=== PATIENT | male | born 1935 | race Caucasian/White ===

== ENCOUNTER → 2017-12-14 09:32 | Outpatient (CLI) | payer MEDICARE, OTHER, SELFPAY ==
--- NOTE | 2017-12-14 09:35 | CDU_ITS ---
Reason For Study: Carotid stenosis Rt. Velocities/BP Lt. Velocities/BP Prox CCA 106.0/11.1 cm/sec. Prox CCA 74.5/15.8 cm/sec. Mid CCA 69.2/11.7 cm/sec. Mid CCA 61.0/11.7 cm/sec. Dist CCA 74.5/11.7 cm/sec. Dist CCA 56.3/13.5 cm/sec. Prox ICA 48.3/12.2 cm/sec. Prox ICA 152.0/39.3 cm/sec. Mid ICA 76.2/20.8 cm/sec. Mid ICA 101.0/23.6 cm/sec. Dist ICA 109.0/29.3 cm/sec. Dist ICA 89.9/25.3 cm/sec. Rt. ICA/CCA = 1.6. Lt. ICA/CCA = 2.5. Prox ECA 122.0/7.9 cm/sec. Prox ECA 157.0/0.0 cm/sec. Rt. Vert. 70.9/11.7 cm/sec. Lt. Vert. 46.1/9.4 cm/sec. Right Extracranial There is heterogeneous, irregular atherosclerotic plaque noted in the right common carotid artery. There is homogeneous, smooth atherosclerotic plaque noted in the right internal carotid artery. There is intimal thickening but no significant atherosclerotic plaque noted in the right external carotid artery. Antegrade flow is noted in the right vertebral artery. Left Extracranial There is heterogeneous, irregular atherosclerotic plaque noted in the left common carotid artery. There is heterogeneous, irregular atherosclerotic plaque noted in the left internal carotid artery. The atherosclerotic plaque causes acoustic shadowing. There is intimal thickening but no significant atherosclerotic plaque noted in the left external carotid artery. Antegrade flow is noted in the left vertebral artery. Procedure Carotid Duplex 55190. Exam performed in department. Interpretation Summary Widely patent post operative changes of the right carotid bulb and proximal internal carotid with <50% stenosis Mild disease right external carotid Calcific irregular plague at the proximal left internal and external carotids. 50-69% stenosis left internal carotid Mild disease left external carotid Patent and antegrade vertebrals bilaterally Ordering Physician: Timmy Fatima Referring Physician: Timmy Fatima Performed By: Yenny Leblanc RVT
== END ==
PROVIDERS: Family Provider Internal Medicine; PCP Internal Medicine; Referring Provider Surgery; Visit Provider Surgery
DX: I65.23 Occlusion and stenosis of bilateral carotid arteries (principal)
CPT/HCPCS: 93880

== ENCOUNTER → 2018-02-20 11:00 | Outpatient (CLI) | payer MEDICARE, OTHER, SELFPAY | PROVIDERS: Family Provider Internal Medicine; PCP Internal Medicine; Referring Provider Nurse Practitioner Adult Health; Visit Provider Nurse Practitioner Adult Health | DX: R82.998 Other abnormal findings in urine (principal) | CPT/HCPCS: 87077; 87086; 87088; 87186 ==

== ENCOUNTER → 2018-05-08 10:12 | Outpatient (CLI) | payer MEDICARE, OTHER, SELFPAY ==
[2018-04-21 08:33] VITALS: BMI 28.7
[2018-05-08 10:51] LABS: Hematocrit 39.7 % (40-54); Mean Corp Hgb Conc 32.7 g/gl (32-36); Mean Corpuscular Hgb 30.9 pg (27.0-32.0); Mean Corpuscular Volume 94.3 fL (80-94); Mean Platelet Vol. 9.2 fl (6.2-12.0); Platelet Count 230 K/mm3 (150-450); RBC Distribution Width CV 11.6 % (11.6-14.6); RBC Distribution Width SD 39.2 fl (35.1-43.9); Red Blood Count 4.21 M/mm3 (4.6-6.2); White Blood Count 7.4 K/mm3 (4.4-11.0)
[2018-05-08 10:52] LABS: Scan Indicated on CBC? Y/N NO
[2018-05-08 11:07] LABS: Anion Gap 9 (5-15); BUN 24 mg/dL (7-18); Calcium,Total 8.7 mg/dL (8.5-10.1); Chloride 102 mmol/L (98-107); Creatinine, Serum 1.41 mg/dL (0.70-1.30); EST Glomerular Filtration Rate 51 mL/min (>60); Est Glom Filt Rate - Afr Amer 62 mL/min (>60); Glucose 208 mg/dL (74-106); Potassium 4.5 mmol/L (3.5-5.1); Sodium Level 140 mmol/L (136-145)
== END ==
PROVIDERS: Family Provider Internal Medicine; PCP Internal Medicine; Visit Provider Surgery
DX: I77.9 Disorder of arteries and arterioles, unspecified (principal)
CPT/HCPCS: 36415; 80048; 85027

== ENCOUNTER 2018-05-16 06:25 | Day surgery (SDC) | payer MEDICARE, OTHER, SELFPAY ==
[2018-04-21 08:33] VITALS: BMI 28.7
[2018-05-15 08:46] VITALS: BMI 28.5
--- NOTE | 2018-05-16 10:50 | PCM.OPRPT ---
Problem List (1) Peripheral arterial occlusive disease Status: Acute Report of Operation Date of Procedure: 05/16/18 Pre-Operative Diagnosis: Critical ischemia right foot Post-Operative Diagnosis: Multi segmental peripheral vascular occlusive disease with occlusion of the right anterior tibial and peroneal and posterior tibial Surgery/Procedure Performed:: Abdominal pelvic right lower extremity arteriogram with right anterior tibial 2 x 80 mm angioplasty Description of Surgical Findings:: Timeout and informed consent was obtained. 83-year-old gentleman was taken to special procedures room. He was placed on the table. Bilateral groins were sterilely prepped and draped. Under ultrasound guidance 2% lidocaine was instilled overlying the left common femoral artery. Ultrasound was used to advance a micropuncture needle micropuncture wire micropuncture sheath 035 J-wire 6 [place] short sheath dilator then using the 035 Glidewire 5 [place] universal flush cath was placed in the abdominal aorta. Using carbon dioxide 20 cc a AP aortogram was obtained. Quality was poor however because of the patient's chronic renal failure I did not see any gross areas of clinically significant stenosis. I used the Glidewire and got access to the right iliac system. The flush cath would not advance. I then advanced an 035 quick cross catheter into the right superficial femoral artery. Images of the right superficial femoral artery demonstrated patency. Then using a combination of wires using a stiff Glidewire to advance the 035 quick cross catheter then a 035 Magic wire then was able to place a 7 Barbadian destination sheath. This point the patient received 9000 units of heparin. Based upon ACT measurements throughout the procedure he received an additional 2000 units of heparin and 1000 unit boluses. Using the 035 Glidewire the 035 quick cross catheter was advanced down to the right knee. Static views demonstrated patency of the superficial femoral and the popliteal however at the trifurcation the right anterior tibial peroneal and posterior tibial are all occluded. There is only collateral flow distally. More distal view suggested that the right anterior tibial is partially open and though heavily diseased distally. The anterior tibial had a short stab that was patent proximally. I used a combination of 035 quick cross catheter and a 1 4 quick cross catheter and 014 pilot plant technician wire and 035 Glidewire to gain access to the right anterior tibial artery. Static images were obtained through that catheter. I was eventually able to advance past an area of proximal occlusion. Images now demonstrated that there was a significant collateral that could be filled from the anterior tibial. There was a length of about 4 cm of occluded proximal anterior tibial that if open would allow for better direct flow into the collateral. The major vessels could not be reopened. I was able to advance the pilot plant technician 150 wire. I placed a 2 x 80 mm nail across. Balloon angioplasty was performed up to 14 disha of pressure. Hand-injection view suggested improved flow to the collateral. As noted I could not get access to reestablish flow through any major vessel distally. At the completion with an 83-year-old gentleman I felt that I perform it as much intervention is with which I felt comfortable. The balloons and wires were removed. The sheath was withdrawn over its dilator and wire. A Perclose device was inserted and performed the left groin with complete hemostasis. Sterile dressings applied blood loss 100 cc he tolerated procedure well was taken to recovery area in satisfactory condition. The right foot remained with a pink color. Doppler suggested that lateral to the mid right tibia there was some audible flow noted. Images demonstrate a patent abdominal aorta iliacs although that imaging is poor. The right profundofemoral and superficial femoral has a calcified wall but is generally patent. There is some exophytic disease at the proximal right popliteal but not flow-limiting. There is occlusion of the right anterior tibial peroneal and posterior tibial with a short stab of anterior tibial remaining in a very small segment distally noted. Subsequent to the angioplasty there appears to be now reconstitution of flow antegrade into the collateral that makes its way down the calf filling branches to the ankle and foot. I am not seeing additional measures that can be undertaken to assist with foot salvage. There do not appear to be any distal vessels available even for consideration of bypass. Timmy Fatima M.D., F.A.C.S. Type of Anesthesia:: IV Sedation
[2018-05-16 13:36] LABS: ACT Activated Clotting Time 208 sec (74-137)
[2018-05-16 13:36] LABS: ACT Activated Clotting Time 131 sec (74-137)
[2018-05-16 13:36] LABS: ACT Activated Clotting Time 191 sec (74-137)
== END 2018-05-16 15:00 | disposition home or self-care (01) ==
LOC: CLSP 06:26
PROVIDERS: Family Provider Internal Medicine; PCP Internal Medicine; Referring Provider Surgery; Visit Provider Surgery
DX: I77.9 Disorder of arteries and arterioles, unspecified (principal); I73.9 Peripheral vascular disease, unspecified; I65.22 Occlusion and stenosis of left carotid artery; E11.9 Type 2 diabetes mellitus without complications; E78.5 Hyperlipidemia, unspecified; N40.0 Benign prostatic hyperplasia without lower urinary tract symptoms; Z95.0 Presence of cardiac pacemaker; Z79.82 Long term (current) use of aspirin; Z79.84 Long term (current) use of oral hypoglycemic drugs; Z79.899 Other long term (current) drug therapy
CPT/HCPCS: 36200; 36245; 37228; 75625; 75710; 76937; 85347; 99152; 99153; J7030; Q9967; C1725; C1760; C1769; C1887; C1894

== ENCOUNTER → 2018-06-13 10:52 | Outpatient (CLI) | payer MEDICARE, OTHER, SELFPAY ==
[2018-05-16 14:20] VITALS: BMI 28.7
== END ==
PROVIDERS: Family Provider Internal Medicine; PCP Internal Medicine; Referring Provider Surgery; Visit Provider Surgery
DX: I73.9 Peripheral vascular disease, unspecified (principal)
CPT/HCPCS: 93923

== ENCOUNTER → 2020-05-26 16:07 | Outpatient (CLI) | payer MEDICARE, OTHER, SELFPAY ==
[2020-03-26 16:14] VITALS: BMI 26.4
[2020-05-26 16:59] LABS: Bacteria 0 SEEN /hpf (None Seen); Mucous, Urine 0 SEEN /hpf (<or=2+); Red Blood Cells-Urine 0 SEEN /hpf (0-5); Squamous Epithelial Cells - UA 0 SEEN /hpf (0-5); White Blood Cells 0 SEEN /hpf (0-5)
[2020-05-26 17:30] LABS: Color, Urine Yellow (Yellow); Glucose, Dipstick Normal (Normal); Ketone-Dipstick Negative (Negative); Leukocyte Esterase-Dipstick Negative /ul (Negative); Nitrite-Dipstick Negative (Negative); Occult Blood-Urine 10 /ul (Negative); Protein-Dipstick 30 mg/dl (Negative); Urine Bilirubin Dipstick Negative (Negative); Urine Clarity Clear (Clear); Urine Urobilinogen Normal (Normal)
== END ==
LOC: LAB.FUTURE 16:11 → LABSPEC 05-27 06:19
PROVIDERS: PCP Student in an Organized Health Care Education/Training Program; Visit Provider Nurse Practitioner Adult Health
DX: R31.21 Asymptomatic microscopic hematuria (principal)
CPT/HCPCS: 81001